=== PATIENT | male | born 1940 | race Caucasian/White ===

== ENCOUNTER 2017-07-24 02:16 | Emergency (ER) | payer MEDICARE ==
[~2017-07-24] VITALS: Ht 188 cm; Wt 80.0 kg
[~2017-07-24 02:16] MED LIST: DULO60CA64 PO; FOLI1TAB16 PO; HYDR-3972 PO; LANS30CA56 PO; METH2.5T55 PO; NITR0.4T SL; ROPI1TAB2 PO; ROPI1TAB4 PO; VERA-1 PO
[2017-07-24] MEDS ORDERED: PRED5TAB PO (02:33)
[2017-07-24] MEDS ORDERED: CLOP75TA35 PO (02:33)
[2017-07-24 03:24] VITALS: BP 147/80
== END 2017-07-24 03:26 | disposition home or self-care (01) ==
LOC: ER 02:16
DX: S01.311A Laceration without foreign body of right ear, initial encounter (principal); I10 Essential (primary) hypertension; J44.9 Chronic obstructive pulmonary disease, unspecified; G89.29 Other chronic pain; Z98.890 Other specified postprocedural states; Z98.61 Coronary angioplasty status; Z88.8 Allergy status to other drugs, medicaments and biological substances; Z88.5 Allergy status to narcotic agent; Z79.899 Other long term (current) drug therapy; W06.XXXA Fall from bed, initial encounter; Y93.84 Activity, sleeping; Y92.89 Other specified places as the place of occurrence of the external cause; Y99.8 Other external cause status
CPT/HCPCS: 12013; 99284; A6449

== ENCOUNTER 2017-09-28 11:49 | Emergency (ER) | payer MEDICARE ==
[~2017-09-28] VITALS: Ht 188 cm; Wt 88.0 kg
[~2017-09-28 11:49] MED LIST changes: +CLOP75TA35 PO; -METH2.5T55 PO; +PRED5TAB PO
[2017-09-28] MEDS ORDERED: HYDROcodone/acetaminophen 10/325mg tab PO ONE (13:20)
[2017-09-28 14:00] VITALS: BP 122/68
== END 2017-09-28 14:11 | disposition home or self-care (01) ==
LOC: ER 11:50
DX: M25.551 Pain in right hip (principal); J44.9 Chronic obstructive pulmonary disease, unspecified; I10 Essential (primary) hypertension; G89.29 Other chronic pain; Z98.890 Other specified postprocedural states; Z98.61 Coronary angioplasty status; Z79.899 Other long term (current) drug therapy; Z88.5 Allergy status to narcotic agent; Z88.8 Allergy status to other drugs, medicaments and biological substances; W01.0XXA Fall on same level from slipping, tripping and stumbling without subsequent striking against object, initial encounter; Y93.89 Activity, other specified; Y92.89 Other specified places as the place of occurrence of the external cause; Y99.8 Other external cause status
CPT/HCPCS: 70450; 73502; 99284; A6223

== ENCOUNTER 2017-12-09 12:55 | Emergency (ER) | payer MEDICARE ==
[~2017-12-09] VITALS: Ht 188 cm; Wt 84.8 kg
[2017-12-09 13:23] LABS: BASOPHILS % (AUTO) 0.4 % (0-1); EOSINOPHILS % (AUTO) 0.5 % (0-6); HEMATOCRIT 37.4 % (42.0-52.0); HEMOGLOBIN 12.6 g/dl (14.0-17.9); LYMPHOCYTES # (AUTO) 1.7 X10'3 (1.1-4.8); LYMPHOCYTES % (AUTO) 24.1 % (21-51); MEAN CORPUSCULAR HEMOGLOBIN 32.6 PG (27.0-31.0); MEAN CORPUSCULAR HGB CONC 33.8 % (33.0-36.5); MEAN CORPUSCULAR VOLUME 96.6 FL (78-98); MEAN PLATELET VOLUME 7.4 FL (7.4-10.4); MONOCYTES # (AUTO) 0.7 X10'3 (0-0.9); MONOCYTES % (AUTO) 10.1 % (2-12); NEUTROPHILS # (AUTO) 4.5 X10'3 (1.8-7.7); NEUTROPHILS % (AUTO) 64.9 % (42-75); PLATELET COUNT 197 X10'3 (140-440); RED BLOOD COUNT 3.87 X10'6 (4.70-6.10); RED CELL DISTRIBUTION WIDTH 17.5 % (11.5-14.5); WHITE BLOOD COUNT 6.9 X10'3 (4.5-11.0)
[2017-12-09 13:33] LABS: PARTIAL THROMBOPLASTIN TIME 27 SECONDS (22-32); PROTHROMBIN TIME 10.3 SECONDS (9.0-12.0)
[2017-12-09 13:40] LABS: ALANINE AMINOTRANSFERASE 13 U/L (12-78); ALBUMIN 3.1 G/DL (3.4-5.0); ALBUMIN/GLOBULIN RATIO 0.7 (1.1-1.5); ALKALINE PHOSPHATASE 80 IU/L (46-116); ANION GAP 5 (8-16); ASPARTATE AMINO TRANSFERASE 16 U/L (10-37); BILIRUBIN,TOTAL 0.4 MG/DL (0.1-1.0); BLOOD UREA NITROGEN 14 MG/DL (7-18); BUN/CREATININE RATIO 14.9 (5.4-32.0); CALCIUM 8.6 MG/DL (8.5-10.1); CHLORIDE 103 MMOL/L (99-107); CREATININE 0.94 MG/DL (0.60-1.10); GLUCOSE 112 MG/DL (70-104); POTASSIUM 3.7 MMOL/L (3.5-5.1); SODIUM 137 MMOL/L (135-145); TOTAL CARBON DIOXIDE 28.9 MMOL/L (24-32); TOTAL PROTEIN 7.8 G/DL (6.4-8.2); eGFR 78 ML/MIN
[2017-12-09] MEDS ORDERED: ipratropium/albuterol 3ml nebule NEB ONE (14:05)
[2017-12-09] MEDS ORDERED: predniSONE 20 mg tablet PO ONE (14:05)
[2017-12-09] MEDS ORDERED: PRED20TA PO (14:22)
[2017-12-09 14:31] VITALS: BP 113/83
== END 2017-12-09 14:37 | disposition home or self-care (01) ==
LOC: ER 12:56
DX: J44.1 Chronic obstructive pulmonary disease with (acute) exacerbation (principal); I10 Essential (primary) hypertension; G89.29 Other chronic pain; F17.200 Nicotine dependence, unspecified, uncomplicated; Z85.9 Personal history of malignant neoplasm, unspecified; Z98.61 Coronary angioplasty status; Z98.890 Other specified postprocedural states; Z88.5 Allergy status to narcotic agent; Z88.8 Allergy status to other drugs, medicaments and biological substances; Z79.899 Other long term (current) drug therapy
CPT/HCPCS: 36415; 71046; 80053; 84484; 85025; 85610; 85730; 93005; 94640; 94760; 99285; J7512

== ENCOUNTER 2017-12-23 10:17 | Day surgery (SDC) | payer MEDICARE ==
[~2017-12-23] VITALS: Ht 188 cm; Wt 86.4 kg
[2017-12-23 10:35] VITALS: BP 125/76
[2017-12-23] MEDS ORDERED: CYAN100070 PO (10:39)
[2017-12-23] MEDS ORDERED: CITRICAL (10:40)
[2017-12-23] MEDS ORDERED: MULT-1085 PO (10:41)
[2017-12-23] MEDS ORDERED: REM100I IV (10:41)
[2017-12-23] MEDS ORDERED: LIDOcaine Viscous 15ml cup ONE (10:44)
[2017-12-23] MEDS ORDERED: MIDAZolam 5mg/5ml vial ONE (10:44)
[2017-12-23] MEDS ORDERED: fentaNYL/PF 50MCG/1 ML 2ML syringe ONE (10:44)
[2017-12-23 11:07] VITALS: BP 132/75
[2017-12-23 11:17] VITALS: BP 130/68
[2017-12-23 11:27] VITALS: BP 118/70
[2017-12-23 11:37] VITALS: BP 134/67
== END 2017-12-23 11:45 | disposition home or self-care (01) ==
LOC: GI LAB 10:17
PROVIDERS: ATTEND Internal Medicine Gastroenterology
DX: K22.2 Esophageal obstruction (principal); K44.9 Diaphragmatic hernia without obstruction or gangrene
CPT/HCPCS: 43450; J2250; J3010; J7030; A4620; G0500

== ENCOUNTER 2018-02-06 17:45 | Emergency (ER) | payer MEDICARE ==
[~2018-02-06] VITALS: Ht 188 cm; Wt 81.5 kg
[~2018-02-06 17:45] MED LIST changes: +CITRICAL; +CYAN100070 PO; +MULT-1085 PO; -NITR0.4T SL; -PRED5TAB PO; +REM100I IV
[2018-02-06 18:28] LABS: BASOPHILS % (AUTO) 0.2 % (0-1); EOSINOPHILS % (AUTO) 0.8 % (0-6); HEMATOCRIT 36.3 % (42.0-52.0); HEMOGLOBIN 12.4 g/dl (14.0-17.9); LYMPHOCYTES # (AUTO) 1.1 X10'3 (1.1-4.8); LYMPHOCYTES % (AUTO) 20.8 % (21-51); MEAN CORPUSCULAR HEMOGLOBIN 33.7 PG (27.0-31.0); MEAN CORPUSCULAR HGB CONC 34.2 % (33.0-36.5); MEAN CORPUSCULAR VOLUME 98.5 FL (78-98); MEAN PLATELET VOLUME 8.9 FL (7.4-10.4); MONOCYTES # (AUTO) 0.3 X10'3 (0-0.9); MONOCYTES % (AUTO) 6.1 % (2-12); NEUTROPHILS # (AUTO) 3.8 X10'3 (1.8-7.7); NEUTROPHILS % (AUTO) 72.1 % (42-75); PLATELET COUNT 137 X10'3 (140-440); RED BLOOD COUNT 3.68 X10'6 (4.70-6.10); RED CELL DISTRIBUTION WIDTH 16.4 % (11.5-14.5); WHITE BLOOD COUNT 5.2 X10'3 (4.5-11.0)
[2018-02-06 18:34] LABS: ALANINE AMINOTRANSFERASE 25 U/L (12-78); ALBUMIN 2.9 G/DL (3.4-5.0); ALBUMIN/GLOBULIN RATIO 0.8 (1.1-1.5); ALKALINE PHOSPHATASE 73 IU/L (46-116); ANION GAP 3 (8-16); ASPARTATE AMINO TRANSFERASE 19 U/L (10-37); BILIRUBIN,TOTAL 0.7 MG/DL (0.1-1.0); BLOOD UREA NITROGEN 26 MG/DL (7-18); BUN/CREATININE RATIO 33.8 (5.4-32.0); CALCIUM 8.7 MG/DL (8.5-10.1); CHLORIDE 103 MMOL/L (99-107); CREATININE 0.77 MG/DL (0.60-1.10); GLUCOSE 113 MG/DL (70-104); LIPASE 167 U/L (73-393); POTASSIUM 3.6 MMOL/L (3.5-5.1); SODIUM 142 MMOL/L (135-145); TOTAL PROTEIN 6.6 G/DL (6.4-8.2); eGFR > 90 ML/MIN
[2018-02-06] MEDS ORDERED: normal saline 1000ML IV soln IVB ONE (19:00)
[2018-02-06] MEDS ORDERED: ROPINIRole 1mg tablet PO ONE (20:40)
[2018-02-06] MEDS ORDERED: HYDROcodone/acetaminophen 10/325mg tab PO ONE (20:40)
[2018-02-06 20:49] VITALS: BP 110/69
[2018-02-06] MEDS ORDERED: DEXL60CA3 PO (20:51)
[2018-02-06] MEDS ORDERED: SUCR1ORA2 PO (20:51)
[2018-02-06 20:52] LABS: CLARITY,URINE CLEAR (Clear); COLOR,URINE YELLOW (Yellow); GLUCOSE, URINE NEGATIVE (Neg); KETONES,URINE NEGATIVE (Neg); LEUKOCYTE ESTERASE ,URINE NEGATIVE (Neg); NITRITES, URINE NEGATIVE (Neg); OCCULT BLOOD,URINE NEGATIVE (Neg); PROTEIN,URINE NEGATIVE (Neg)
[2018-02-06 20:54] LABS: UA COLLECTION TYPE CLN CATCH MIDSTREAM
[2018-02-06] MEDS ORDERED: sucralfate 1gm/10ml UD suspension PO STA (20:54)
[2018-02-06] MEDS ORDERED: mag hydrox/Alum hydrox/simeth 30ml oral suspension PO ONE (20:55)
[2018-02-06] MEDS ORDERED: LIDOcaine Viscous 15ml cup PO ONE (20:55)
== END 2018-02-06 21:36 | disposition home or self-care (01) ==
LOC: ER 17:45
DX: K20.9 Esophagitis, unspecified (principal); K29.70 Gastritis, unspecified, without bleeding; I10 Essential (primary) hypertension; G89.29 Other chronic pain; J44.9 Chronic obstructive pulmonary disease, unspecified; F17.200 Nicotine dependence, unspecified, uncomplicated; F12.10 Cannabis abuse, uncomplicated; Z88.5 Allergy status to narcotic agent; Z79.899 Other long term (current) drug therapy
CPT/HCPCS: 36415; 74176; 80053; 81003; 83690; 85025; 96360; 99285

== ENCOUNTER 2018-02-13 19:00 | Inpatient (IN) | payer MEDICARE ==
[~2018-02-13] VITALS: Ht 190.5 cm; Wt 77.2 kg
[~2018-02-13 19:00] MED LIST changes: +DEXL60CA3 PO; +SUCR1ORA2 PO
[2018-02-13] MEDS ORDERED: normal saline 1000ML IV soln IVB ONE (19:50)
[2018-02-13 20:11] LABS: HEMATOCRIT 28.9 % (42.0-52.0); HEMOGLOBIN 9.6 g/dl (14.0-17.9); RED CELL DISTRIBUTION WIDTH 17.2 % (11.5-14.5)
[2018-02-13 20:15] LABS: BASOPHILS % (AUTO) 0.1 % (0-1); EOSINOPHILS % (AUTO) 0.1 % (0-6); LYMPHOCYTES # (AUTO) 0.3 X10'3 (1.1-4.8); LYMPHOCYTES % (AUTO) 9.1 % (21-51); MEAN CORPUSCULAR HEMOGLOBIN 32.9 PG (27.0-31.0); MEAN CORPUSCULAR HGB CONC 33.4 % (33.0-36.5); MEAN CORPUSCULAR VOLUME 98.6 FL (78-98); MEAN PLATELET VOLUME 8.5 FL (7.4-10.4); MONOCYTES # (AUTO) 0.2 X10'3 (0-0.9); MONOCYTES % (AUTO) 5.5 % (2-12); NEUTROPHILS # (AUTO) 2.9 X10'3 (1.8-7.7); NEUTROPHILS % (AUTO) 85.2 % (42-75); PLATELET COUNT 86 X10'3 (140-440); RED BLOOD COUNT 2.93 X10'6 (4.70-6.10); WHITE BLOOD COUNT 3.4 X10'3 (4.5-11.0)
[2018-02-13 20:29] LABS: PARTIAL THROMBOPLASTIN TIME 25 SECONDS (22-32); PROTHROMBIN TIME 10.8 SECONDS (9.0-12.0)
[2018-02-13 20:33] LABS: ALANINE AMINOTRANSFERASE 39 U/L (12-78); ALBUMIN 2.7 G/DL (3.4-5.0); ALBUMIN/GLOBULIN RATIO 0.9 (1.1-1.5); ALKALINE PHOSPHATASE 59 IU/L (46-116); ANION GAP 6 (8-16); ASPARTATE AMINO TRANSFERASE 19 U/L (10-37); BILIRUBIN,TOTAL 1.1 MG/DL (0.1-1.0); BLOOD UREA NITROGEN 20 MG/DL (7-18); BUN/CREATININE RATIO 31.3 (5.4-32.0); CALCIUM 7.8 MG/DL (8.5-10.1); CHLORIDE 104 MMOL/L (99-107); CREATININE 0.64 MG/DL (0.60-1.10); GLUCOSE 100 MG/DL (70-104); POTASSIUM 3.1 MMOL/L (3.5-5.1); SODIUM 140 MMOL/L (135-145); TOTAL PROTEIN 5.8 G/DL (6.4-8.2); eGFR > 90 ML/MIN
[2018-02-13 20:50] LABS: D-DIMER 5.88 MG/L FEU (0-0.50)
[2018-02-13] MEDS ORDERED: dicyclomine 10 MG capsule PO ONE (20:50)
[2018-02-13] MEDS ORDERED: temazepam 15mg capsule PO PRN (21:00)
[2018-02-13] MEDS ORDERED: iohexol 350MG/ML 100ml bottle IV ONE (21:01)
[2018-02-13] MEDS ORDERED: iohexol 350 MG/ML 50ML vial IV ONE (21:04)
[2018-02-13 21:27] LABS: RED BLOOD COUNT 2.94 X10'6 (4.70-6.10); RETICULOCYTE % (AUTO) 1.1 % (0.5-1.5)
[2018-02-13] MEDS ORDERED: potassium Cl 20 mEq SR tablet PO ONE (22:05)
[2018-02-13 22:24] LABS: MAGNESIUM 1.2 MG/DL (1.5-2.4); PHOSPHORUS 2.8 MG/DL (2.3-4.5)
[2018-02-13] MEDS ORDERED: potassium Cl 10 mEq/100mL bag IV ONE (22:30)
[2018-02-13] MEDS ORDERED: mag hydrox/Alum hydrox/simeth 30ml oral suspension PO ONE (22:30)
[2018-02-13] MEDS ORDERED: LIDOcaine Viscous 15ml cup PO ONE (22:30)
[2018-02-13] MEDS ORDERED: morphine 2 MG/ML inj. syringe IV PRN ×2 (22:55)
[2018-02-13] MEDS ORDERED: HYDROcodone/acetaminophen 10/325mg tab PO PRN (22:55)
[2018-02-13] MEDS ORDERED: potassium 10mEq/100ml NS w/LIDOcaine (10mg/bag) IV ONE (22:55)
[2018-02-13] MEDS ORDERED: diphenhydrAMINE 25mg capsule PO PRN (22:55)
[2018-02-13] MEDS ORDERED: acetaminophen 325mg tablet PO PRN (22:55)
[2018-02-13] MEDS ORDERED: mag hydrox/Alum hydrox/simeth 30ml oral suspension PO PRN (22:55)
[2018-02-13] MEDS ORDERED: bisacodyl 10mg suppository rectal RC PRN (22:55)
[2018-02-13] MEDS ORDERED: diphenhydrAMINE 50 mg/ml inj IV PRN (22:55)
[2018-02-13] MEDS ORDERED: metoclopramide 5 mg/ml inj IV PRN (22:55)
[2018-02-13] MEDS ORDERED: HYDROcodone/acetaminophen 5mg/325mg tablet PO PRN (22:55)
[2018-02-13] MEDS ORDERED: magnesium hydroxide 30ml (MOM) UD suspension PO PRN (22:55)
[2018-02-13] MEDS ORDERED: ondansetron/PF 4mg/2ml inj IV PRN (22:55)
[2018-02-13] MEDS ORDERED: acetaminophen 650mg rectal suppository RC PRN (22:55)
[2018-02-13] MEDS ORDERED: magnesium 4gm in 100ml NS 100 ML IV PRN (23:15)
[2018-02-13] MEDS ORDERED: potassium Cl 20 mEq SR tablet PO PRN ×2 (23:15)
[2018-02-13] MEDS ORDERED: magnesium Cl slow-release 64mg tablet PO PRN (23:15)
[2018-02-13 23:34] LABS: LIPASE 90 U/L (73-393)
[2018-02-14] VITALS (7 sets, daily range): BP systolic 82–113; BP diastolic 50–75
[2018-02-14] MEDS ORDERED: LOPE-155 PO (00:14)
[2018-02-14] MEDS ORDERED: BISA-155 PO (00:14)
[2018-02-14] MEDS ORDERED: PROC10TA10 PO (00:14)
[2018-02-14] MEDS: levoFLOXACIN-Levaquin 500mg/D5 100 ML IV SCH ×2 (01:05→08:41)
[2018-02-14] MEDS: potassium Cl 20mEq in NS 1,000 ML IV SCH ×2 (01:05→08:51)
[2018-02-14] MEDS ORDERED: normal saline 500ml IV soln 500 ML IV ONE (02:20)
[2018-02-14 03:12] LABS: BASOPHILS % (AUTO) 0.1 % (0-1); EOSINOPHILS % (AUTO) 0.1 % (0-6); HEMATOCRIT 24.9 % (42.0-52.0); HEMOGLOBIN 8.4 g/dl (14.0-17.9); LYMPHOCYTES # (AUTO) 0.3 X10'3 (1.1-4.8); LYMPHOCYTES % (AUTO) 11.8 % (21-51); MEAN CORPUSCULAR HEMOGLOBIN 33.1 PG (27.0-31.0); MEAN CORPUSCULAR HGB CONC 33.7 % (33.0-36.5); MEAN CORPUSCULAR VOLUME 98.3 FL (78-98); MEAN PLATELET VOLUME 8.6 FL (7.4-10.4); MONOCYTES # (AUTO) 0.3 X10'3 (0-0.9); MONOCYTES % (AUTO) 10.1 % (2-12); NEUTROPHILS # (AUTO) 2.2 X10'3 (1.8-7.7); NEUTROPHILS % (AUTO) 77.9 % (42-75); PLATELET COUNT 73 X10'3 (140-440); RED BLOOD COUNT 2.54 X10'6 (4.70-6.10); RED CELL DISTRIBUTION WIDTH 17.1 % (11.5-14.5); WHITE BLOOD COUNT 2.9 X10'3 (4.5-11.0)
[2018-02-14 03:14] LABS: ALANINE AMINOTRANSFERASE 30 U/L (12-78); ALBUMIN 2.2 G/DL (3.4-5.0); ALBUMIN/GLOBULIN RATIO 0.8 (1.1-1.5); ALKALINE PHOSPHATASE 50 IU/L (46-116); ANION GAP 3 (8-16); ASPARTATE AMINO TRANSFERASE 15 U/L (10-37); BILIRUBIN,TOTAL 0.9 MG/DL (0.1-1.0); BLOOD UREA NITROGEN 14 MG/DL (7-18); BUN/CREATININE RATIO 21.2 (5.4-32.0); CALCIUM 7.3 MG/DL (8.5-10.1); CHLORIDE 106 MMOL/L (99-107); CREATININE 0.66 MG/DL (0.60-1.10); GLUCOSE 94 MG/DL (70-104); POTASSIUM 3.2 MMOL/L (3.5-5.1); SODIUM 138 MMOL/L (135-145); TOTAL CARBON DIOXIDE 28.8 MMOL/L (24-32); eGFR > 90 ML/MIN
[2018-02-14 03:16] LABS: MAGNESIUM 1.3 MG/DL (1.5-2.4)
[2018-02-14] MEDS ORDERED: potassium Cl 40MEQ/NS 500ml 500 ML IV PRN ×4 (03:35→10:00)
[2018-02-14] MEDS: LIDOcaine Viscous 15ml cup MM PRN ×4 (05:02→21:39)
[2018-02-14 05:19] LABS: ANISOCYTOSIS 1+; PLATELET ESTIMATE DECREASED; TOTAL CELLS COUNTED 100
[2018-02-14 05:20] LABS: ELLIPTOCYTES FEW
[2018-02-14] MEDS ORDERED: pantoprazole 40mg Tablet.DR PO SCH (07:30)
[2018-02-14] MEDS ORDERED: ROPINIRole 1mg tablet PO SCH ×3 (08:00→21:00)
[2018-02-14] MEDS ORDERED: verapamil SR 120mg (sust. release) tab PO SCH (08:00)
[2018-02-14] MEDS ORDERED: clopidogrel 75mg tablet PO SCH (08:00)
[2018-02-14] MEDS ORDERED: non-formulary drug (Lansoprazole 1 CAP) PO SCH (08:00)
[2018-02-14] MEDS: docusate sod 100mg capsule PO SCH ×2 (08:40→20:00)
[2018-02-14] MEDS: sucralfate 1gm/10ml UD suspension PO SCH ×4 (08:41→21:38)
[2018-02-14] MEDS: methylPREDNISolone sod succ 125mg/2ml vial IV SCH ×2 (08:41→20:16)
[2018-02-14] MEDS ORDERED: magnesium 4gm in 100ml NS 100 ML IV PRN (10:00)
[2018-02-14] MEDS ORDERED: potassium Cl 20 mEq SR tablet PO PRN ×2 (10:00)
[2018-02-14] MEDS ORDERED: magnesium Cl slow-release 64mg tablet PO PRN (10:00)
[2018-02-14] MEDS ORDERED: nicotine 21mg patch - 24 hr TD ONE (10:05)
[2018-02-14] MEDS: magnesium 1gm/100ml D5W IVPB 100 ML IV PRN ×2 (11:39→13:51)
[2018-02-14] MEDS ORDERED: ROPI2TAB5 PO (11:39)
[2018-02-14] MEDS ORDERED: ROPI2TAB4 PO (11:41)
[2018-02-14] MEDS ORDERED: iohexol 300mg/ml 100ml inj. ONE (13:22)
[2018-02-14] MEDS ORDERED: PEG 3350/Na sulf,bicarb,Cl/KCl oral sol 4 liter bottle PO ONE (13:40)
[2018-02-14 14:57] LABS: % IRON SATURATION 17 % (11-46); IRON 30 UG/DL (53-167); TOTAL IRON BINDING CAPACITY 177 UG/DL (259-388)
[2018-02-14 15:13] LABS: FERRITIN 1372 NG/ML (26-388)
[2018-02-14 21:06] LABS: MAGNESIUM 2.4 MG/DL (1.5-2.4); POTASSIUM 4.1 MMOL/L (3.5-5.1)
[2018-02-15] VITALS: BP 90/53
[2018-02-15] MEDS: LIDOcaine Viscous 15ml cup MM PRN (01:32)
[2018-02-15] MEDS: potassium Cl 20mEq in NS 1,000 ML IV SCH (02:23)
[2018-02-15 05:35] LABS: BASOPHILS % (AUTO) 0 % (0-1); EOSINOPHILS % (AUTO) 0 % (0-6); HEMATOCRIT 25.8 % (42.0-52.0); HEMOGLOBIN 8.9 g/dl (14.0-17.9); LYMPHOCYTES # (AUTO) 0.2 X10'3 (1.1-4.8); LYMPHOCYTES % (AUTO) 6.7 % (21-51); MEAN CORPUSCULAR HEMOGLOBIN 33.4 PG (27.0-31.0); MEAN CORPUSCULAR HGB CONC 34.4 % (33.0-36.5); MEAN CORPUSCULAR VOLUME 97.1 FL (78-98); MEAN PLATELET VOLUME 8.6 FL (7.4-10.4); MONOCYTES # (AUTO) 0.1 X10'3 (0-0.9); MONOCYTES % (AUTO) 3.3 % (2-12); NEUTROPHILS # (AUTO) 2.4 X10'3 (1.8-7.7); PLATELET COUNT 68 X10'3 (140-440); RED BLOOD COUNT 2.65 X10'6 (4.70-6.10); WHITE BLOOD COUNT 2.7 X10'3 (4.5-11.0)
[2018-02-15 05:41] LABS: ALANINE AMINOTRANSFERASE 27 U/L (12-78); ALBUMIN 2.2 G/DL (3.4-5.0); ALBUMIN/GLOBULIN RATIO 0.7 (1.1-1.5); ALKALINE PHOSPHATASE 47 IU/L (46-116); ANION GAP 3 (8-16); ASPARTATE AMINO TRANSFERASE 12 U/L (10-37); BILIRUBIN,TOTAL 0.6 MG/DL (0.1-1.0); BLOOD UREA NITROGEN 16 MG/DL (7-18); BUN/CREATININE RATIO 21.9 (5.4-32.0); CALCIUM 7.3 MG/DL (8.5-10.1); CHLORIDE 107 MMOL/L (99-107); CREATININE 0.73 MG/DL (0.60-1.10); GLUCOSE 136 MG/DL (70-104); POTASSIUM 4.1 MMOL/L (3.5-5.1); SODIUM 139 MMOL/L (135-145); TOTAL CARBON DIOXIDE 28.6 MMOL/L (24-32); TOTAL PROTEIN 5.3 G/DL (6.4-8.2); eGFR > 90 ML/MIN
[2018-02-15 06:22] LABS: ANISOCYTOSIS 1+; LARGE PLATELETS FEW; PLATELET ESTIMATE DECREASED; TOTAL CELLS COUNTED 100
[2018-02-15 07:17] VITALS: BP 108/45
[2018-02-15] MEDS ORDERED: nicotine 21mg patch - 24 hr TD SCH (08:00)
[2018-02-15] MEDS ORDERED: ROPINIRole 1mg tablet PO SCH (14:00)
== END 2018-02-15 08:25 | disposition left against medical advice (07) | DRG 809 ==
LOC: ER 19:03 → ED HOLD 22:51 → EDBEDREQ 02-14 00:04 → SUR 3N 02-14 00:47
PROVIDERS: ADMIT Family Medicine; ATTEND Family Medicine
PROC: B32T1ZZ Computerized Tomography (CT Scan) of Left Pulmonary Artery using Low Osmolar Contrast (ICD-10-PCS; 2018-02-13)
PROC: B3201ZZ Computerized Tomography (CT Scan) of Thoracic Aorta using Low Osmolar Contrast (ICD-10-PCS; 2018-02-13)
PROC: B32S1ZZ Computerized Tomography (CT Scan) of Right Pulmonary Artery using Low Osmolar Contrast (ICD-10-PCS; 2018-02-13)
PROC: BW211ZZ Computerized Tomography (CT Scan) of Abdomen and Pelvis using Low Osmolar Contrast (ICD-10-PCS; 2018-02-13)
PROC: 30233N1 Transfusion of Nonautologous Red Blood Cells into Peripheral Vein, Percutaneous Approach (ICD-10-PCS; principal; 2018-02-14)
PROC: BW281ZZ Computerized Tomography (CT Scan) of Head using Low Osmolar Contrast (ICD-10-PCS; 2018-02-14)
DX: D61.810 Antineoplastic chemotherapy induced pancytopenia (principal); C34.90 Malignant neoplasm of unspecified part of unspecified bronchus or lung; J44.1 Chronic obstructive pulmonary disease with (acute) exacerbation; I50.9 Heart failure, unspecified; E87.6 Hypokalemia; E83.42 Hypomagnesemia; E86.0 Dehydration; F12.90 Cannabis use, unspecified, uncomplicated; Z53.21 Procedure and treatment not carried out due to patient leaving prior to being seen by health care provider; F17.210 Nicotine dependence, cigarettes, uncomplicated; T45.1X5A Adverse effect of antineoplastic and immunosuppressive drugs, initial encounter; G89.4 Chronic pain syndrome; I11.0 Hypertensive heart disease with heart failure; I25.10 Atherosclerotic heart disease of native coronary artery without angina pectoris; K22.4 Dyskinesia of esophagus; R09.02 Hypoxemia; M54.9 Dorsalgia, unspecified; Z99.81 Dependence on supplemental oxygen; Z88.5 Allergy status to narcotic agent; Z88.8 Allergy status to other drugs, medicaments and biological substances; Z79.899 Other long term (current) drug therapy; Y92.89 Other specified places as the place of occurrence of the external cause
CPT/HCPCS: 36415; 70470; 70491; 71045; 71275; 74177; 80053; 82728; 83540; 83550; 83605; 83690; 83735; 83880; 84100; 84132; 84484; 85025; 85045; 85379; 85610; 85730; 86885; 86900; 86901; 86920; 87040; 93005; 94760; 99285; J1956; J2405; J2930; J3475; J3480; J7030; P9016; Q9967

== ENCOUNTER 2018-04-03 13:02 | Inpatient (IN) | payer MEDICARE ==
[~2018-04-03] VITALS: Ht 185.4 cm; Wt 80.9 kg
[~2018-04-03 13:02] MED LIST changes: +BISA-155 PO; -DULO60CA64 PO; +LOPE-155 PO; +PROC10TA10 PO; -ROPI1TAB2 PO; -ROPI1TAB4 PO; +ROPI2TAB4 PO; +ROPI2TAB5 PO
[2018-04-03] MEDS ORDERED: normal saline 1000ML IV soln IVB ONE (13:20)
[2018-04-03 13:37] LABS: BASOPHILS % (AUTO) 0.1 % (0-1); EOSINOPHILS # (AUTO) 0.1 X10'3 (0-0.9); EOSINOPHILS % (AUTO) 1.5 % (0-6); HEMOGLOBIN 10.1 g/dl (14.0-17.9); LYMPHOCYTES # (AUTO) 0.8 X10'3 (1.1-4.8); LYMPHOCYTES % (AUTO) 11.7 % (21-51); MEAN CORPUSCULAR HEMOGLOBIN 32.1 PG (27.0-31.0); MEAN CORPUSCULAR HGB CONC 32.5 % (33.0-36.5); MEAN CORPUSCULAR VOLUME 98.8 FL (78-98); MEAN PLATELET VOLUME 8.1 FL (7.4-10.4); MONOCYTES # (AUTO) 0.8 X10'3 (0-0.9); MONOCYTES % (AUTO) 12.2 % (2-12); NEUTROPHILS # (AUTO) 4.9 X10'3 (1.8-7.7); NEUTROPHILS % (AUTO) 74.5 % (42-75); PLATELET COUNT 221 X10'3 (140-440); RED BLOOD COUNT 3.13 X10'6 (4.70-6.10); RED CELL DISTRIBUTION WIDTH 19.1 % (11.5-14.5); WHITE BLOOD COUNT 6.6 X10'3 (4.5-11.0)
[2018-04-03] MEDS ORDERED: levoFLOXACIN-Levaquin 750MG/D5 150 ML IV ONE (13:45)
[2018-04-03 13:50] LABS: INR 1.2 INR; PARTIAL THROMBOPLASTIN TIME 30 SECONDS (22-32); PROTHROMBIN TIME 11.7 SECONDS (9.0-12.0)
[2018-04-03 13:51] LABS: ALANINE AMINOTRANSFERASE 19 U/L (12-78); ALBUMIN 2.6 G/DL (3.4-5.0); ALBUMIN/GLOBULIN RATIO 0.6 (1.1-1.5); ALKALINE PHOSPHATASE 72 IU/L (46-116); ANION GAP 7 (8-16); ASPARTATE AMINO TRANSFERASE 17 U/L (10-37); BILIRUBIN,TOTAL 0.5 MG/DL (0.1-1.0); BLOOD UREA NITROGEN 18 MG/DL (7-18); CALCIUM 8.7 MG/DL (8.5-10.1); CHLORIDE 99 MMOL/L (99-107); GLUCOSE 111 MG/DL (70-104); POTASSIUM 3.6 MMOL/L (3.5-5.1); SODIUM 137 MMOL/L (135-145); TOTAL CARBON DIOXIDE 31.4 MMOL/L (24-32); TOTAL PROTEIN 7.1 G/DL (6.4-8.2); eGFR 82 ML/MIN
[2018-04-03 14:04] LABS: MAGNESIUM 0.7 MG/DL (1.5-2.4)
[2018-04-03] MEDS ORDERED: VITA1CAP (14:56)
[2018-04-03] MEDS ORDERED: SENN25TA PO (14:56)
[2018-04-03] MEDS ORDERED: CHOL10002 PO (14:56)
[2018-04-03] MEDS ORDERED: ROPI2TAB4 PO (14:56)
[2018-04-03] MEDS ORDERED: FLEC100T2 PO (14:56)
[2018-04-03] MEDS ORDERED: FERR28TA (14:56)
[2018-04-03] MEDS ORDERED: DOXY-1 PO (14:56)
[2018-04-03] MEDS: magnesium 2GM in 50ml NS 50 ML IV SCH ×2 (15:03→15:55)
[2018-04-03] MEDS ORDERED: normal saline 1000ml 1,000 ML IV ONE (15:25)
[2018-04-03] MEDS ORDERED: acetaminophen 325mg tablet PO PRN ×2 (16:05)
[2018-04-03] MEDS ORDERED: ipratropium/albuterol 3ml nebule NEB PRN (16:05)
[2018-04-03] MEDS ORDERED: magnesium 4gm in 100ml NS 100 ML IV PRN (16:05)
[2018-04-03] MEDS ORDERED: potassium Cl 20 mEq SR tablet PO PRN ×2 (16:05)
[2018-04-03] MEDS ORDERED: magnesium Cl slow-release 64mg tablet PO PRN (16:05)
[2018-04-03] MEDS ORDERED: magnesium hydroxide 30ml (MOM) UD suspension PO PRN (16:05)
[2018-04-03] MEDS ORDERED: ondansetron/PF 4mg/2ml inj IV PRN (16:05)
[2018-04-03] MEDS ORDERED: potassium Cl 40MEQ/NS 500ml 500 ML IV PRN ×2 (16:05)
[2018-04-03] MEDS: normal saline 1000ml 1,000 ML IV SCH (17:13)
[2018-04-03] MEDS: CefTRIAXone/D5W-Rocephin 1gm 50 ML IV SCH (17:13)
[2018-04-03 17:47] VITALS: BP 123/68
[2018-04-03 19:30] VITALS: BP 117/68
[2018-04-03] MEDS ORDERED: pantoprazole 40mg Tablet.DR PO ONE (19:35)
[2018-04-03] MEDS: HYDROcodone/acetaminophen 10/325mg tab PO SCH (19:42)
[2018-04-03] MEDS: flecainide 50mg tablet PO SCH (19:43)
[2018-04-03] MEDS: pantoprazole 40mg Tablet.DR PO SCH (19:46)
[2018-04-03] MEDS ORDERED: non-formulary drug (Flecainide Acetate 1 TAB) PO SCH (20:00)
[2018-04-03] MEDS ORDERED: ROPINIROLE HCL PO SCH (21:00)
[2018-04-03] MEDS: ROPINIRole 1mg tablet PO SCH (21:00)
[2018-04-03] MEDS: HYDROcodone/acetaminophen 5mg/325mg tablet PO PRN (23:49)
[2018-04-03] MEDS: temazepam 15mg capsule PO PRN (23:49)
[2018-04-04] VITALS: BP 114/66
[2018-04-04] MEDS: normal saline 1000ml 1,000 ML IV SCH ×3 (03:23→16:07)
[2018-04-04 03:45] LABS: BASOPHILS % (AUTO) 0.1 % (0-1); EOSINOPHILS # (AUTO) 0.1 X10'3 (0-0.9); EOSINOPHILS % (AUTO) 1.6 % (0-6); HEMATOCRIT 28.7 % (42.0-52.0); HEMOGLOBIN 9.4 g/dl (14.0-17.9); LYMPHOCYTES # (AUTO) 1.1 X10'3 (1.1-4.8); LYMPHOCYTES % (AUTO) 19.2 % (21-51); MEAN CORPUSCULAR HGB CONC 32.6 % (33.0-36.5); MEAN PLATELET VOLUME 8.3 FL (7.4-10.4); MONOCYTES # (AUTO) 0.9 X10'3 (0-0.9); MONOCYTES % (AUTO) 16.2 % (2-12); NEUTROPHILS # (AUTO) 3.6 X10'3 (1.8-7.7); NEUTROPHILS % (AUTO) 62.9 % (42-75); PLATELET COUNT 213 X10'3 (140-440); RED BLOOD COUNT 2.93 X10'6 (4.70-6.10); RED CELL DISTRIBUTION WIDTH 19.2 % (11.5-14.5); WHITE BLOOD COUNT 5.7 X10'3 (4.5-11.0)
[2018-04-04 03:59] LABS: ALANINE AMINOTRANSFERASE 18 U/L (12-78); ALBUMIN 2.4 G/DL (3.4-5.0); ALBUMIN/GLOBULIN RATIO 0.6 (1.1-1.5); ALKALINE PHOSPHATASE 61 IU/L (46-116); ANION GAP 7 (8-16); ASPARTATE AMINO TRANSFERASE 18 U/L (10-37); BILIRUBIN,TOTAL 0.5 MG/DL (0.1-1.0); BLOOD UREA NITROGEN 14 MG/DL (7-18); BUN/CREATININE RATIO 18.4 (5.4-32.0); CHLORIDE 104 MMOL/L (99-107); CREATININE 0.76 MG/DL (0.60-1.10); GLUCOSE 84 MG/DL (70-104); POTASSIUM 3.6 MMOL/L (3.5-5.1); SODIUM 139 MMOL/L (135-145); TOTAL CARBON DIOXIDE 28.5 MMOL/L (24-32); TOTAL PROTEIN 6.6 G/DL (6.4-8.2); eGFR > 90 ML/MIN
[2018-04-04 04:02] LABS: MAGNESIUM 1.5 MG/DL (1.5-2.4); PHOSPHORUS 2.7 MG/DL (2.3-4.5)
[2018-04-04] MEDS ORDERED: pantoprazole 40mg Tablet.DR PO SCH ×2 (07:30)
[2018-04-04 08:00] VITALS: BP 136/67
[2018-04-04] MEDS ORDERED: VERAPAMIL HCL PO SCH (08:00)
[2018-04-04] MEDS ORDERED: non-formulary drug (Lansoprazole 1 CAP) PO SCH (08:00)
[2018-04-04] MEDS: K and/or MAG REPLACEMENT MC SCH (08:00)
[2018-04-04] MEDS: verapamil SR 120mg (sust. release) tab PO SCH (08:57)
[2018-04-04] MEDS: CefTRIAXone/D5W-Rocephin 1gm 50 ML IV SCH (08:57)
[2018-04-04] MEDS: clopidogrel 75mg tablet PO SCH (08:59)
[2018-04-04] MEDS: HYDROcodone/acetaminophen 10/325mg tab PO SCH ×2 (08:59→19:18)
[2018-04-04] MEDS: flecainide 50mg tablet PO SCH ×2 (08:59→21:58)
[2018-04-04] MEDS: pantoprazole 40mg Tablet.DR PO SCH ×2 (08:59→19:18)
[2018-04-04] MEDS: enoxaparin 40mg/0.4ml syringe SUBCUT SCH (09:01)
[2018-04-04] MEDS ORDERED: iohexol 350MG/ML 100ml bottle IV ONE (09:17)
[2018-04-04] MEDS: levoFLOXACIN-Levaquin 750MG/D5 150 ML IV SCH (10:38)
[2018-04-04] MEDS: HYDROcodone/acetaminophen 5mg/325mg tablet PO PRN (16:06)
[2018-04-04 19:00] VITALS: BP 114/70
[2018-04-04] MEDS: mag hydrox/Alum hydrox/simeth 30ml oral suspension PO PRN (19:11)
[2018-04-04] MEDS: lactobacillus rhamnosus 10,000 MMU CELLS/CAPSULE PO SCH (19:13)
[2018-04-04] MEDS: HYDROcodone/acetaminophen 10/325mg tab PO PRN ×2 (19:15→23:53)
[2018-04-04] MEDS: ROPINIRole 1mg tablet PO SCH (21:58)
[2018-04-04 23:30] VITALS: BP 115/63
[2018-04-05] MEDS: normal saline 1000ml 1,000 ML IV SCH (03:04)
[2018-04-05] MEDS: HYDROcodone/acetaminophen 10/325mg tab PO PRN (04:10)
[2018-04-05] MEDS: mag hydrox/Alum hydrox/simeth 30ml oral suspension PO PRN ×2 (04:12→18:01)
[2018-04-05 06:09] LABS: BASOPHILS % (AUTO) 0.2 % (0-1); EOSINOPHILS # (AUTO) 0.1 X10'3 (0-0.9); EOSINOPHILS % (AUTO) 1.7 % (0-6); HEMATOCRIT 28.1 % (42.0-52.0); HEMOGLOBIN 9.3 g/dl (14.0-17.9); LYMPHOCYTES # (AUTO) 0.8 X10'3 (1.1-4.8); MEAN CORPUSCULAR HEMOGLOBIN 32.8 PG (27.0-31.0); MEAN CORPUSCULAR HGB CONC 33.1 % (33.0-36.5); MEAN CORPUSCULAR VOLUME 99.1 FL (78-98); MEAN PLATELET VOLUME 8.2 FL (7.4-10.4); MONOCYTES # (AUTO) 1.1 X10'3 (0-0.9); MONOCYTES % (AUTO) 18.7 % (2-12); NEUTROPHILS # (AUTO) 3.8 X10'3 (1.8-7.7); NEUTROPHILS % (AUTO) 65.4 % (42-75); PLATELET COUNT 223 X10'3 (140-440); RED BLOOD COUNT 2.83 X10'6 (4.70-6.10); RED CELL DISTRIBUTION WIDTH 18.6 % (11.5-14.5); WHITE BLOOD COUNT 5.8 X10'3 (4.5-11.0)
[2018-04-05 06:46] LABS: ALANINE AMINOTRANSFERASE 24 U/L (12-78); ALBUMIN 2.4 G/DL (3.4-5.0); ALBUMIN/GLOBULIN RATIO 0.5 (1.1-1.5); ALKALINE PHOSPHATASE 67 IU/L (46-116); ANION GAP 7 (8-16); ASPARTATE AMINO TRANSFERASE 23 U/L (10-37); BILIRUBIN,TOTAL 0.5 MG/DL (0.1-1.0); BLOOD UREA NITROGEN 11 MG/DL (7-18); BUN/CREATININE RATIO 12.6 (5.4-32.0); CALCIUM 8.2 MG/DL (8.5-10.1); CHLORIDE 104 MMOL/L (99-107); CREATININE 0.87 MG/DL (0.60-1.10); GLUCOSE 92 MG/DL (70-104); MAGNESIUM 1.3 MG/DL (1.5-2.4); PHOSPHORUS 2.1 MG/DL (2.3-4.5); POTASSIUM 3.6 MMOL/L (3.5-5.1); SODIUM 139 MMOL/L (135-145); TOTAL CARBON DIOXIDE 27.7 MMOL/L (24-32); TOTAL PROTEIN 6.8 G/DL (6.4-8.2); eGFR 85 ML/MIN
[2018-04-05 07:45] VITALS: BP 134/75
[2018-04-05] MEDS: K and/or MAG REPLACEMENT MC SCH (08:00)
[2018-04-05] MEDS: CefTRIAXone/D5W-Rocephin 1gm 50 ML IV SCH (08:45)
[2018-04-05] MEDS: lactobacillus rhamnosus 10,000 MMU CELLS/CAPSULE PO SCH ×2 (08:46→20:24)
[2018-04-05] MEDS: verapamil SR 120mg (sust. release) tab PO SCH (08:46)
[2018-04-05] MEDS: flecainide 50mg tablet PO SCH ×2 (08:47→20:24)
[2018-04-05] MEDS: pantoprazole 40mg Tablet.DR PO SCH ×2 (08:47→20:24)
[2018-04-05] MEDS: clopidogrel 75mg tablet PO SCH (08:47)
[2018-04-05] MEDS: HYDROcodone/acetaminophen 10/325mg tab PO SCH ×2 (08:48→20:24)
[2018-04-05] MEDS: enoxaparin 40mg/0.4ml syringe SUBCUT SCH (08:49)
[2018-04-05] MEDS: levoFLOXACIN-Levaquin 750MG/D5 150 ML IV SCH (10:25)
[2018-04-05 11:00] VITALS: BP 134/75
[2018-04-05] MEDS: HYDROcodone/acetaminophen 5mg/325mg tablet PO PRN (14:27)
[2018-04-05 20:00] VITALS: BP 100/53
[2018-04-05] MEDS: ROPINIRole 1mg tablet PO SCH (20:24)
[2018-04-05] MEDS ORDERED: magnesium 2GM in 50ml NS 50 ML IV PRN (21:00)
[2018-04-05] MEDS: temazepam 15mg capsule PO PRN (22:52)
[2018-04-06] VITALS: BP 111/62
[2018-04-06] MEDS: temazepam 15mg capsule PO PRN (00:24)
[2018-04-06] MEDS: HYDROcodone/acetaminophen 10/325mg tab PO SCH (01:39)
[2018-04-06 05:57] LABS: BASOPHILS % (AUTO) 0.1 % (0-1); EOSINOPHILS # (AUTO) 0.1 X10'3 (0-0.9); HEMATOCRIT 26.4 % (42.0-52.0); HEMOGLOBIN 8.6 g/dl (14.0-17.9); LYMPHOCYTES # (AUTO) 0.7 X10'3 (1.1-4.8); LYMPHOCYTES % (AUTO) 12.3 % (21-51); MEAN CORPUSCULAR HEMOGLOBIN 32.1 PG (27.0-31.0); MEAN CORPUSCULAR HGB CONC 32.6 % (33.0-36.5); MEAN CORPUSCULAR VOLUME 98.6 FL (78-98); MEAN PLATELET VOLUME 8.4 FL (7.4-10.4); MONOCYTES % (AUTO) 17.4 % (2-12); NEUTROPHILS # (AUTO) 3.8 X10'3 (1.8-7.7); NEUTROPHILS % (AUTO) 68.2 % (42-75); PLATELET COUNT 241 X10'3 (140-440); RED BLOOD COUNT 2.67 X10'6 (4.70-6.10); RED CELL DISTRIBUTION WIDTH 19.2 % (11.5-14.5); WHITE BLOOD COUNT 5.6 X10'3 (4.5-11.0)
[2018-04-06 06:23] LABS: ALANINE AMINOTRANSFERASE 22 U/L (12-78); ALBUMIN 2.4 G/DL (3.4-5.0); ALBUMIN/GLOBULIN RATIO 0.5 (1.1-1.5); ALKALINE PHOSPHATASE 69 IU/L (46-116); ANION GAP 6 (8-16); ASPARTATE AMINO TRANSFERASE 21 U/L (10-37); BILIRUBIN,TOTAL 0.6 MG/DL (0.1-1.0); BLOOD UREA NITROGEN 12 MG/DL (7-18); BUN/CREATININE RATIO 16.4 (5.4-32.0); CALCIUM 8.2 MG/DL (8.5-10.1); CHLORIDE 101 MMOL/L (99-107); CREATININE 0.73 MG/DL (0.60-1.10); GLUCOSE 103 MG/DL (70-104); MAGNESIUM 2.3 MG/DL (1.5-2.4); PHOSPHORUS 1.7 MG/DL (2.3-4.5); POTASSIUM 3.8 MMOL/L (3.5-5.1); SODIUM 136 MMOL/L (135-145); TOTAL CARBON DIOXIDE 29.5 MMOL/L (24-32); TOTAL PROTEIN 6.8 G/DL (6.4-8.2); eGFR > 90 ML/MIN
[2018-04-06 07:00] VITALS: BP 131/79
[2018-04-06] MEDS: K and/or MAG REPLACEMENT MC SCH (07:26)
[2018-04-06] MEDS: lactobacillus rhamnosus 10,000 MMU CELLS/CAPSULE PO SCH (07:34)
[2018-04-06] MEDS: flecainide 50mg tablet PO SCH (07:34)
[2018-04-06] MEDS: verapamil SR 120mg (sust. release) tab PO SCH (07:34)
[2018-04-06] MEDS: pantoprazole 40mg Tablet.DR PO SCH (07:34)
[2018-04-06] MEDS: clopidogrel 75mg tablet PO SCH (07:34)
[2018-04-06] MEDS: CefTRIAXone/D5W-Rocephin 1gm 50 ML IV SCH (07:36)
[2018-04-06] MEDS: enoxaparin 40mg/0.4ml syringe SUBCUT SCH (07:36)
[2018-04-06 11:00] VITALS: BP 101/58
[2018-04-06] MEDS ORDERED: levoFLOXACIN 750MG TABLET PO SCH (11:00)
[2018-04-06] MEDS: HYDROcodone/acetaminophen 10/325mg tab PO PRN (11:09)
[2018-04-06] MEDS ORDERED: Neutra Phos packet PO ONE (12:50)
[2018-04-06] MEDS ORDERED: LACT1CAP26 PO (13:30)
[2018-04-06] MEDS ORDERED: LEVO500T89 PO (13:30)
[2018-04-06] MEDS ORDERED: NEUPHOSK PO (13:32)
[2018-04-06] MEDS ORDERED: MAGN400C PO (13:32)
== END 2018-04-06 14:32 | disposition home health service (06) | DRG 193 ==
LOC: ER 13:02 → ED HOLD 16:04 → SUR 3N 17:28
PROVIDERS: ADMIT Family Medicine; ATTEND Family Medicine
DX: J18.1 Lobar pneumonia, unspecified organism (principal); J96.01 Acute respiratory failure with hypoxia; J44.0 Chronic obstructive pulmonary disease with (acute) lower respiratory infection; I50.32 Chronic diastolic (congestive) heart failure; E83.42 Hypomagnesemia; D63.8 Anemia in other chronic diseases classified elsewhere; I25.10 Atherosclerotic heart disease of native coronary artery without angina pectoris; I48.0 Paroxysmal atrial fibrillation; I11.0 Hypertensive heart disease with heart failure; D71 Functional disorders of polymorphonuclear neutrophils; G89.29 Other chronic pain; M54.9 Dorsalgia, unspecified; F17.200 Nicotine dependence, unspecified, uncomplicated; F12.90 Cannabis use, unspecified, uncomplicated; Z95.5 Presence of coronary angioplasty implant and graft; Z99.81 Dependence on supplemental oxygen; Z88.6 Allergy status to analgesic agent; Z88.8 Allergy status to other drugs, medicaments and biological substances; Z79.899 Other long term (current) drug therapy; Z86.73 Personal history of transient ischemic attack (TIA), and cerebral infarction without residual deficits; Z85.118 Personal history of other malignant neoplasm of bronchus and lung
CPT/HCPCS: 36415; 71045; 71275; 80053; 83605; 83735; 83880; 84100; 84145; 84484; 85025; 85610; 85730; 87040; 87070; 87502; 87503; 93005; 93306; 94640; 94760; 96365; 96366; 96368; 99285; G0378; J0696; J1650; J1956; J3475; J7030; Q9967